=== PATIENT | female | born 2005 | race Caucasian/White ===

== ENCOUNTER 2024-01-08 08:30 | Day surgery (SDC) | payer OTHER, SELFPAY ==
--- NOTE | 2024-01-08 08:39 | PCM.HP.BLA ---
History and Physical Date of Admission: 01/08/24 The patient presents for excision of 2 growing or changing pigmented lesions of her back and 1 on her jawline. There is a family history of melanoma. The patient is examined and there are no changes from the H&P dated 12/15/2023. Informed consent was obtained. Assessment & Plan Assessment/Plan (1) Neoplasm of uncertain behavior of skin: PLAN: Plan For excisions of lesions x 2 of back and one of her jawline area. She is aware of the potential for hypertrophic scarring.
[2024-01-08 08:44] VITALS: BP 111/85; PULSE 81; RESP 16; TEMP 36.4; O2SAT 99; BMI 22.7
[2024-01-08] MEDS: Lidocaine 1% /Epi 1:100 9 ML, Sodium Bicarbonate 1 MEQ OPERA.SITE (09:29)
--- NOTE | 2024-01-08 09:30 | LES_PTH ---
PATIENT: MOHINDER LYMAN LOC: [facility] [place] U#:[id number] AGE/SX: 18/F ROOM: RE01/08/[address]: Dr. Josefa Lombardo MD : 2005 BED: DIS: 01/08/2024 SPEC #: [id number] RECD: 01/08/24 11:25 STATUS: TAQUERIA JOI #: [id number] KAELYN: 01/08/24 09:[address]: Josefa Lombardo DEPT: SURGICAL PATHOLOGY RECD BY: Reena Velazquez ENTERED: 01/08/24 12:27 SP TYPE: Lesion OTHR DR: Dr. Dayana Valenzuela, DO Tissues: A - Skin of back, NOS B - Skin of back, NOS C - Skin of face, NOS Procedures: Surgery Specimen Level IV HEADER OPERATION: Excision lesion back x 2 (1cm, 1cm) excision lesion left jaw PRE-OP DIAGNOSIS: Neoplasm of uncertain behavior back x2 and jaw x1 TISSUE SUBMITTED: A- Lesion back, left, B- Lesion back, right, C- Lesion left jaw MICROSCOPIC DIAGNOSIS A. Skin lesion of left back, biopsy: Compound nevus with predominantly intradermal component. B. Skin lesion of right back, biopsy: Intradermal nevus with congenital features. C. Skin lesion of left jaw, biopsy: Intradermal nevus. / 01/11/2024 MICROSCOPIC DESCRIPTION Slides are reviewed. GROSS DESCRIPTION A. Received in fixative is one container labeled with the patient's name and designated Lesion back, left. The specimen consists of a piece of longoria-light brown skin measuring 0.4 x 0.2 x 0.1cm. The entire specimen is submitted in one cassette. B. Received in fixative is one container labeled with the patient's name and designated Lesion back, right. The specimen consists of a piece of longoria-light brown skin measuring 0.4 x 0.3 x 0.3cm. The specimen is inked, bisected and submitted entirely in one cassette. C. Received in fixative is one container labeled with the patient's name and designated Lesion left jaw. The specimen consists of a piece of longoria-light brown skin measuring 0.4 x 0.2 x 0.2cm. The specimen is inked, bisected and submitted entirely in one cassette. 01/11/2024 TC:5 CPT:88582s5
[2024-01-08 09:32] VITALS: BP 101/84; BP 115/91; O2SAT 97; O2SAT 98; O2SAT 99
--- NOTE | 2024-01-08 10:13 | DCINST_ITS ---
Discharge Instructions Dressing / Incision Additional Dressing/Incision Instructions:: Take the oral antibiotic (Keflex) 2 times a day until finished. Keep your back elevated (recliner position) for the next 3 nights to diminish pressure or stretching of the back. -On your back: May shower over the areas but do not scrub. Leave the dressings in place until seen in the office. -On your cheek: Keep the tape dry. Leave the tape in place. If the tape falls off, apply antibiotic ointment (like Neosporin, bacitracin, or triple antibiotic ointment) to the site once a day. Follow Up Care Please Follow Up With: Josefa Lombardo MD When: 1 to 2 weeks Test Results: Test results from this visit will be discussed in further detail at your follow- up appointment, if applicable. Discharge Plan Admission Attending Provider: Josefa Lombardo Primary Care Provider: Dayana Valenzuela Instructions Print Language: Slovenian Discharge Orders/Prescriptions Prescriptions: New cephalexin 500 mg capsule 500 mg PO BID 5 Days Qty: 10 0RF Referrals / Follow Up: Dayana Valenzuela DO [Primary Care Provider] - Disposition Disposition (needs filled in before D/C Order can be placed): Home, Self Care
--- NOTE | 2024-01-08 10:17 | PCM.OPRPT ---
Problems Associated Problem List Diagnoses (1) Neoplasm of uncertain behavior of skin: Report of Operation Date of Procedure: 01/08/24 Pre-Operative Diagnosis: Neoplasm of uncertain behavior of back x 2 and left cheek at jawline Post-Operative Diagnosis: Same Surgery/Procedure Performed:: Excision neoplasm of back x 2 (1.0 cm, 1.0 cm) with intermediate closure of both sites (2.0 cm total) Excision neoplasm left cheek (1.0 cm) with intermediate closure Surgeon: Josefa Lombardo Type of Anesthesia: Local Specimen's removed: Neoplasm of back x 2 and left jawline Estimated Blood Loss (mL): Minimal Description of Procedure: The patient presents with a history of growing changing lesions on the back and the right jawline. She presents for excision of the lesions with submission for pathologic evaluation. Informed consent was obtained including the potential for hypertrophic scarring. The patient is brought to the operating room and placed on the operating room table in the right lateral decubitus position. The back is prepped and draped in the usual sterile fashion. We initially began with injecting 1% Xylocaine with epinephrine. Following this, both sites are elliptically excised and passed off the operative field to be sent to pathology. 5-0 Monocryl sutures used to approximate the subcutaneous tissue and dermis. A running subcuticular Monocryl suture was used to approximate skin edges. Further reinforcement the closure is done with Prolene suture x 2 at each site. The sites are then dressed with Dermabond, Steri-Strips, and a Tegaderm dressing. We then directed our attention to the lesion of the left jawline and after this is prepped and draped in the usual sterile fashion. 1% Xylocaine with epinephrine buffered with sodium bicarb is injected in the site. An elliptical excision is performed. Hemostasis is controlled with cautery. The incisions then closed in layers using a Monocryl suture in the subcutaneous tissue and dermis. A running subcuticular Monocryl sutures used to further approximate skin edges. Reinforcement of the closure is done with a fast-absorbing gut. Dermabond and Steri-Strips are applied to the site. She tolerated the procedure well was taken to the recovery area in an awake and stable condition. Needle and sponge counts are correct. Complications None Admit VTE Documentation VTE Mechan Device Prophylaxis: None Reason prophylaxis not ordered:: Treatment Not Indicated
== END 2024-01-08 10:37 | disposition home or self-care (01) ==
LOC: SDC 08:33 → AC 08:35
PROVIDERS: PCP Pediatrics; Referring Provider Plastic Surgery; Visit Provider Plastic Surgery
PROC: (CPT 11402; principal; 2024-01-08 09:10)
DX: D22.5 Melanocytic nevi of trunk (principal); D22.39 Melanocytic nevi of other parts of face
CPT/HCPCS: 11402 ×2; 11442; 12032; 88305